=== PATIENT | female | born 2000 | race Caucasian/White ===

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

== ENCOUNTER 2023-12-27 11:27 | Inpatient (IN) ==
[2023-12-27] MEDS ORDERED: Lidocaine 1% VIAL 10 MG/ML 30 ML VIAL INJ PRN (11:36)
[2023-12-27 12:46] LABS: Urine Benzodiazepine Screen None Detected (None Detect); Urine Cannabinoids Screen None Detected (None Detect); Urine Opiates Screen None Detected (None Detect)
[2023-12-27 13:06] LABS: ABS Lymphocytes 1.2 10^3/uL (1.0-4.8); ABS Monocytes 0.5 10^3/uL (0.0-0.9); ABS Neutrophils 4.9 10^3/uL (1.5-7.6); ABS Nucleated RBC 0.01 10^3/ul; Eosinophil % 0.7 %; Hematocrit 28.3 % (35-45); Hemoglobin 9.5 g/dL (11.5-14.3); Lymphocyte % 17.7 %; Mean Corpuscular Hemoglobin 29.9 pg (27-33); Mean Corpuscular Hgb Conc 33.5 g/dL (31-36); Mean Corpuscular Volume 89.2 fL (80-97); Mean Platelet Volume 8.3 fL (7.5-11.2); Nucleated Red Blood Cells % 0.1 %/100WBC (0.0-0.8); Platelet Count 198 10^3/uL (150-450); Red Blood Count 3.17 10^6/uL (3.63-4.92); Red Cell Distribution Width 13.9 % (12-17); White Blood Count 6.7 10^3/uL (3.8-11.8)
[2023-12-27] MEDS: Lactated Ringers 1000 ml BAG 1,000 ML IV SCH (13:10)
[2023-12-27] MEDS: Oxytocin in LR 20,000 MILLI.UNIT/1,000 ML BAG IV SCH (13:17)
[2023-12-27] MEDS: fentaNYL 100 mcg/2 ml 50 MCG/ML VIAL IV SLOW PU ONE (22:42)
[2023-12-27] MEDS: Ondansetron 4 mg VIAL 2 MG/ML 2 ml VIAL IV ONE (23:56)
[2023-12-28] MEDS: OBEPIDURAL (200 ML) 200 ML EPIDURAL ONE (01:00)
[2023-12-28] MEDS ORDERED: Sodium Citrate/Citric Acid LIQ 15 ML UDC PO PRN (01:03)
[2023-12-28] MEDS ORDERED: Phenylephrine 40 mcg/mL 10mL (400mcg) SYRINGE IV PUSH PRN (01:03)
[2023-12-28] MEDS: Phenylephrine 40 mcg/mL 10mL (400mcg) SYRINGE IV PUSH PRN (01:23)
[2023-12-28] MEDS: Oxytocin in LR 20,000 MILLI.UNIT/1,000 ML BAG IV SCH (06:36)
[2023-12-28 06:53] LABS: Urine Appearance Clear; Urine Bilirubin Negative (Negative); Urine Blood Negative (Negative); Urine Color Light-Yellow; Urine Glucose Negative (Negative); Urine Ketones Trace (Negative); Urine Nitrite Negative (Negative); Urine Protein Trace (Negative); Urine Specific Gravity 1.021 (1.002-1.030); Urine Urobilinogen Negative (Negative); Urine pH 6.5 (5.0-8.0)
[2023-12-28] MEDS ORDERED: Lactated Ringers 1000 ml BAG 1,000 ML IV SCH (07:00)
[2023-12-28] MEDS: Lactated Ringers 1000 ml BAG 1,000 ML IV SCH (09:19)
[2023-12-28] MEDS: Lidocaine 1.5% EPI 1:200,000 30 ML SDV ONE (09:19)
[2023-12-28] MEDS: Lactated Ringers 1000 ml BAG 1,000 ML IV ONE (09:19)
[2023-12-28] MEDS: OBEPIDURAL (200 ML) 200 ML EPIDURAL SCH (09:20)
[2023-12-28] MEDS: Dibucaine 1% OINT 28.35 GM TUBE PR PRN (09:43)
[2023-12-28] MEDS: Witch Hazel PAD JAR TOPICAL PRN (09:43)
[2023-12-28] MEDS: Lidocaine 1% VIAL 10 MG/ML 30 ML VIAL ONE (11:44)
[2023-12-29 08:33] LABS: ABS Eosinophils 0.1 10^3/uL (0.0-0.5); ABS Lymphocytes 1.6 10^3/uL (1.0-4.8); ABS Monocytes 0.4 10^3/uL (0.0-0.9); ABS Neutrophils 4.6 10^3/uL (1.5-7.6); Hematocrit 25.7 % (35-45); Hemoglobin 8.8 g/dL (11.5-14.3); Lymphocyte % 23.7 %; Mean Corpuscular Hemoglobin 30.8 pg (27-33); Mean Corpuscular Hgb Conc 34.3 g/dL (31-36); Mean Corpuscular Volume 89.9 fL (80-97); Nucleated Red Blood Cells % 0.1 %/100WBC (0.0-0.8); Platelet Count 186 10^3/uL (150-450); Red Blood Count 2.86 10^6/uL (3.63-4.92); Red Cell Distribution Width 14.5 % (12-17); White Blood Count 6.8 10^3/uL (3.8-11.8)
[2023-12-29] MEDS: Iron Sucrose 200 MG in NS 0.9% 100 ml BAG 100 ML IVPB ONE (14:49)
[2023-12-30 07:29] LABS: Hematocrit 26.1 % (35-45); Hemoglobin 8.9 g/dL (11.5-14.3); Mean Corpuscular Hemoglobin 30.8 pg (27-33); Mean Corpuscular Hgb Conc 34.2 g/dL (31-36); Mean Corpuscular Volume 89.9 fL (80-97); Mean Platelet Volume 7.5 fL (7.5-11.2); Platelet Count 188 10^3/uL (150-450); Red Blood Count 2.91 10^6/uL (3.63-4.92); Red Cell Distribution Width 14.1 % (12-17); White Blood Count 6.8 10^3/uL (3.8-11.8)
[2023-12-30 09:36] VITALS: BP 118/69
== END 2023-12-30 13:30 | disposition home or self-care (01) | DRG 560 ==
LOC: MCHOBOUT 11:27 → MCHOB 11:37
PROVIDERS: ADMIT Midwife; ATTEND Midwife